=== PATIENT | male | born 1990 | race Caucasian/White ===

== ENCOUNTER 2016-10-28 14:03 | Emergency (ER) | payer SELFPAY ==
[~2016-10-28] VITALS: Ht 188 cm; Wt 79.0 kg
[2016-10-28 14:06] VITALS: BP 106/67; PULSE 82; RESP 18; TEMP 97.3; O2SAT 99
[2016-10-28] MEDS ORDERED: SODIUM CHLOR 0.9% 1000 ML INJ 1,000 ML IV SCH (21:20)
--- NOTE | 2016-10-28 21:20 | PD ---
HPI Chief Complaint: GI Complaint Time Seen by Provider: 20:53 Travel History International Travel<30 days: No Contact w/Intl Traveler<30days: No Traveled to known affect area: No History of Present Illness HPI 26-year-old male came to the emergency room with history of vomiting and diarrhea that started this morning. Patient is a cook. No known sick contacts. Patient says he has been unable to keep anything down. Asked vomiting was just an hour or so ago in the waiting room. He is otherwise a healthy person. [facility] Past Medical History Narrative Medical List of his past medical history as reviewed from the nursing note. Medical History: Denies Significant Hx Tetanus Vaccination: Unknown Influenza Vaccination: No Social History Alcohol Use: No Tobacco Use: No Substance Use: No Allergies-Medications (Allergen,Severity, Reaction): Coded Allergies: No Known Allergies (Unverified , 10/28/16) Comments No known drug allergies. Reported Meds & Prescriptions Reported Meds & Active Scripts Active Zofran Odt (Ondansetron Odt) 4 Mg Tab 4 Mg SL Q8HR PRN Narrative Medication List of his home medications reviewed from the nursing note. Review of Systems Except as stated in HPI: all other systems reviewed are Neg Physical Exam Narrative GENERAL: Awake, alert, moderate distress SKIN: Warm and dry. HEAD: Atraumatic. Normocephalic. EYES: Pupils equal and round. No scleral icterus. No injection or drainage. ENT: No nasal bleeding or discharge. Dry mucous membrane. NECK: Trachea midline. No JVD. CARDIOVASCULAR: Regular rate and rhythm. No murmur appreciated. RESPIRATORY: No accessory muscle use. Clear to auscultation. Breath sounds equal bilaterally. GASTROINTESTINAL: Abdomen soft, non-tender, nondistended. Hepatic and splenic margins not palpable. MUSCULOSKELETAL: No obvious deformities. No clubbing. No cyanosis. No edema. NEUROLOGICAL: Awake and alert. No obvious cranial nerve deficits. Motor grossly within normal limits. Normal speech. PSYCHIATRIC: Appropriate mood and affect; insight and judgment normal. Data Data Last Documented VS Vital Signs Date Time Temp Pulse Resp B/P Pulse Ox O2 Delivery O2 Flow Rate FiO2 10/28/16 23:22 98 Room Air 10/28/16 14:06 97.3 82 18 106/67 Orders Basic Metabolic Panel (Bmp) (10/28/16 21:20) Complete Blood Count With Diff (10/28/16 21:20) Iv Access Insert/Monitor (10/28/16 21:20) Ecg Monitoring (10/28/16 21:20) Oximetry (10/28/16 21:20) Ondansetron Inj (Zofran Inj) (10/28/16 21:30) Sodium Chlor 0.9% 1000 Ml Inj (Ns 1000 M (10/28/16 21:20) Sodium Chloride 0.9% Flush (Ns Flush) (10/28/16 21:30) Sodium Chlor 0.9% 1000 Ml Inj (Ns 1000 M (10/28/16 23:30) Labs Laboratory Tests Test 10/28/16 21:45 White Blood Count 15.1 TH/MM3 Red Blood Count 5.67 MIL/MM3 Hemoglobin 15.6 GM/DL Hematocrit 46.6 % Mean Corpuscular Volume 82.2 FL Mean Corpuscular Hemoglobin 27.5 PG Mean Corpuscular Hemoglobin 33.5 % Concent Red Cell Distribution Width 12.2 % Platelet Count 255 TH/MM3 Mean Platelet Volume 8.9 FL Neutrophils (%) (Auto) 95.2 % Lymphocytes (%) (Auto) 1.3 % Monocytes (%) (Auto) 3.2 % Eosinophils (%) (Auto) 0.1 % Basophils (%) (Auto) 0.2 % Neutrophils # (Auto) 14.4 TH/MM3 Lymphocytes # (Auto) 0.2 TH/MM3 Monocytes # (Auto) 0.5 TH/MM3 Eosinophils # (Auto) 0.0 TH/MM3 Basophils # (Auto) 0.0 TH/MM3 CBC Comment DIFF FINAL Differential Comment Sodium Level 137 MEQ/L Potassium Level 4.6 MEQ/L Chloride Level 104 MEQ/L Carbon Dioxide Level 24.4 MEQ/L Anion Gap 9 MEQ/L Blood Urea Nitrogen 22 MG/DL Creatinine 1.14 MG/DL Estimat Glomerular Filtration 77 ML/MIN Rate Random Glucose 98 MG/DL Calcium Level 9.2 MG/DL MDM Medical Decision Making Medical Screen Exam Complete: Yes Emergency Medical Condition: Yes Medical Record Reviewed: Yes Differential Diagnosis Acute gastroenteritis, food poisoning Narrative Course 11:15 PM blood test results of back and patient has some leukocytosis which could be from the stress of multiple vomiting and diarrhea. Chemistry looks within normal limit. Patient has not vomited anymore. He was given Zofran and 1 L IV fluid bolus. Did a second liter. He will be given by mouth challenge. And discharged. Procedures EKG Prior to Arrival: No Diagnosis Primary Impression: Acute gastroenteritis Referrals: Primary Care Physician 2 days Additional Instructions: Please return to the ER if the condition worsens or any other new concerns. Otherwise take the medication as per the prescription direction. Not return to work until symptoms are completely gone. Med/Other Pt SpecificInfo: Prescription(s) given Scripts Ondansetron Odt (Zofran Odt)4 Mg Tab4 Mg SL Q8HR PRN (Nausea/Vomiting) #15 TAB Ref 0 Prov:Glen Mendiola MD 10/28/16 Disposition: 01 DISCHARGE HOME Condition: Stable Glen Mendiola MD Oct 28, 2016 21:20 Glen Mendiola MD Oct 28, 2016 21:20
[2016-10-28] MEDS ORDERED: ONDANSETRON HCL 4 MG/2 ML VIAL IVP ONE (21:30)
[2016-10-28] MEDS ORDERED: SODIUM CHLORIDE 0.9% FLUSH 5 ML FLUSH IVF PRN (21:30)
[2016-10-28 22:33] LABS: AUTOMATED NEUTROPHIL # 14.4 TH/MM3 (1.8-7.7); BASOPHIL % 0.2 % (0.0-2.0); EOSINOPHIL % 0.1 % (0.0-4.0); HEMATOCRIT 46.6 % (39.0-51.0); HEMO FLAGS DIFF FINAL; LYMPH % 1.3 % (9.0-44.0); LYMPHOCYTE # 0.2 TH/MM3 (1.0-4.8); MEAN CELL VOLUME 82.2 FL (80.0-100.0); MEAN CORPUSCULAR HEMOGLOBIN 27.5 PG (27.0-34.0); MEAN CORPUSCULAR HGB CONC 33.5 % (32.0-36.0); MONO % 3.2 % (0.0-8.0); NEUT % 95.2 % (16.0-70.0); PLATELET COUNT 255 TH/MM3 (150-450); RED BLOOD COUNT 5.67 MIL/MM3 (4.50-5.90); RED CELL DISTRIBUTION WIDTH 12.2 % (11.6-17.2); WHITE BLOOD COUNT 15.1 TH/MM3 (4.0-11.0)
[2016-10-28 23:06] LABS: BICARBONATE 24.4 MEQ/L (21.0-32.0); POTASSIUM 4.6 MEQ/L (3.5-5.1)
[2016-10-28] MEDS ORDERED: ZOFR4TAB3 SL (23:21)
[2016-10-28 23:22] VITALS: O2SAT 98
[2016-10-28] MEDS ORDERED: SODIUM CHLOR 0.9% 1000 ML INJ 1,000 ML IV ONE (23:30)
== END 2016-10-29 | disposition home or self-care (01) ==
LOC: NEPE 14:03
DX: K52.9 Noninfective gastroenteritis and colitis, unspecified (principal)
CPT/HCPCS: 80048; 85025; 96361; 96374; 99284; J2405; J7030